=== PATIENT | male | born 1950 | race Caucasian/White ===

== ENCOUNTER → 2017-01-12 | Outpatient (CLI) | payer OTHER, MEDICARE ==
[2017-01-12 10:00] LABS: CREATININE 1.4 mg/dL (0.7-1.3)
== END ==
LOC: CAT 09:12 → LABMALL 09:12
PROVIDERS: Family Medicine
DX: R63.4 Abnormal weight loss (principal)

== ENCOUNTER → 2017-09-23 | Outpatient (CLI) | payer OTHER, MEDICARE | LOC: CAT 11:13 | DX: D69.6 Thrombocytopenia, unspecified (principal); N28.1 Cyst of kidney, acquired ==

== ENCOUNTER → 2019-03-06 | Outpatient (CLI) | payer OTHER, MEDICARE | LOC: RAD 01:21 → ULTRA 01:21 | DX: N63.20 Unspecified lump in the left breast, unspecified quadrant (principal) ==